=== PATIENT | male | born 1990 | race Asian ===

== ENCOUNTER 2018-10-04 11:53 | Emergency (ER) | payer BC ==
[2018-10-04 13:02] LABS: ALT (SGPT) 116 U/L (8-55); AST (SGOT) 44 U/L (5-34); Albumin 4.1 g/dL (3.5-5.0); Alkaline Phosphatase 59 U/L (40-150); Anion Gap 17 mmol/L (10-20); BUN (Urea Nitrogen) 13 mg/dL (8.9-20.6); Calc. Creatinine Clearance 0 mL/min (70-130); Calcium 8.9 mg/dL (7.8-10.44); Carbon Dioxide 22 mmol/L (22-29); Chloride 103 mmol/L (98-107); Estimated GFR-MDRD Greater than 90; Globulin 2.8 g/dL (2.4-3.5); Glucose 125 mg/dL (70-105); PTT 36.7 SEC (22.9-36.1); Potassium 3.9 mmol/L (3.5-5.1); Protein, Total 6.9 g/dL (6.0-8.3); Prothrombin Time 13.3 SEC (12.0-14.7); Sodium 138 mmol/L (136-145)
[2018-10-04 13:03] LABS: D-Dimer Test 0.67 *mcg/mL (0.27-0.43)
[2018-10-04 13:03] LABS: Band 13 % (5-11); Eosinophils 2 % (0-10); Hemoglobin 13.8 g/dL (14.0-18.0); Lymphocytes 27 % (21-51); MDiff Complete? YES; Mean Corpuscular HGB CONC 34.4 g/dL (32.0-36.0); Mean Corpuscular Hemoglobin 28.4 pg (27.0-31.0); Mean Corpuscular Volume 82.6 fL (78.0-98.0); Mean Platelet Volume 12.3 fL (7.4-10.4); Metamyelocyte 1 % (0-0); Monocytes 1 % (0-10); Neutrophil 6 % (42-75); PLT Morphology Comment Appears Decreased; Platelet Count 9 thou/uL (130-400); RBC Distribution Width 12.9 % (11.5-14.5); RBC Morphology Normal; Reactive Lymphocytes 4 % (0-10); Red Blood Cell (RBC) Count 4.86 mill/uL (4.70-6.10); Reflex for Review?? YES; White Blood Cell (WBC) Count 8.3 thou/uL (4.8-10.8)
[2018-10-04 13:06] LABS: Differential Comment Blast-Like Cell(s)
--- NOTE | 2018-10-04 13:17 | RAD ---
TWO VIEWS CHEST: HISTORY: Lymphadenopathy. COMPARISON: None. FINDINGS: Normal cardiac silhouette. The pulmonary vessels and hilum are normal. Costophrenic angles are farideh r. No consolidation or mass. No pneumothorax or osseous abnormalities. IMPRESSION: No acute cardiopulmonary process. POS: H
[2018-10-04 13:34] LABS: HBCM Index 0.06 S/CO (0-0.79); HIV (1/2) Antibody/Antigen Non-Reactive (NonReactive); HIV 1/2 INDEX 0.09 S/CO (<1.00); Hep A IgM AB Non-Reactive (NonReactive); Hep A IgM S/CO 0.09 S/CO (0-0.79); Hep B Surf Ag Non-Reactive S/CO (NonReactive); Hep C IgG Ab Non-Reactive (NonReactive); Hep C Index 0.03 S/CO (0-0.79); Hepatitis B Core IgM Abs Non-Reactive (NonReactive)
== END 2018-10-04 19:57 | disposition short-term general hospital (02) ==
LOC: ERS 11:53
DX: C92.00 Acute myeloblastic leukemia, not having achieved remission (principal); F17.210 Nicotine dependence, cigarettes, uncomplicated
CPT/HCPCS: 36416; 71046; 80053; 80074; 85007; 85027; 85060; 85379; 85384; 85610; 85730; 87389